=== PATIENT | male | born 2000 | race Caucasian/White ===

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

== ENCOUNTER 2018-10-23 13:52 | Emergency (ER) | payer BC ==
[2018-10-23] MEDS ORDERED: Diphtheria,Pertussis(Acell),Tetanus Vaccine 0.5 ML SDV IM ONE (14:21)
--- NOTE | 2018-10-23 15:27 | EDM.PDOC ---
ED HPI GENERAL MEDICAL PROBLEM - General Chief Complaint: Laceration Stated Complaint: RIGHT FOOT INJURY Time Seen by Provider: 10/23/18 14:10 Source of Information: Reports: Patient History Limitations: Reports: No Limitations - History of Present Illness INITIAL COMMENTS - FREE TEXT/NARRATIVE: 18-year-old male presents to the emergency room with a injury puncture wound to his right foot. Patient was using a yard drag when it got clogged up with hay and straw. 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 He attempted to unclogged the drag when it slipped out of his hand dropping directly onto his right foot. The spike went through his muddy rubber boots directly into his forefoot. He pulled the drag out of his foot and presented to the emergency room. He is otherwise healthy. He denies any other complaints. His pain is well controlled. - Related Data Allergies Allergy/AdvReac Type Severity Reaction Status Date / Time No Known Drug Allergies Allergy none Verified 10/23/18 14:56 Home Meds: Home Meds . [No Known Home Meds] 10/23/18 [History] Past Medical History - Past Health History Medical/Surgical History: Denies Medical/Surgical History HEENT History: Reports: Other (See Below) Other HEENT History: recent cold Respiratory History: Reports: Other (See Below) Other Respiratory History: current bronchitis - Past Surgical History Respiratory Surgical History: Reports: None Social & Family History - Tobacco Use Smoking Status *Q: Current Every Day Smoker Tobacco Use Within Last Twelve Months: Cigarettes Years of Tobacco use: 3 Packs/Tins Daily: 0.5 - Caffeine Use Caffeine Use: Reports: None - Living Situation & Occupation Living situation: Reports: with Family Occupation: Student Review of Systems - Review of Systems Review Of Systems: ROS reveals no pertinent complaints other than HPI. ED EXAM, GENERAL - Physical Exam Exam: See Below Exam Limited By: No Limitations General Appearance: Alert, WD/WN, No Apparent Distress Nose: Normal Inspection Throat/Mouth: Normal Inspection, Normal Lips, Normal Teeth, Normal Voice, No Airway Compromise Head: Atraumatic Neck: Normal Inspection, Supple Respiratory/Chest: Lungs Clear, Normal Breath Sounds Cardiovascular: Regular Rate, Rhythm, No Murmur GI/Abdominal: Soft Back Exam: Normal Inspection Extremities: Normal Inspection, Other (There is a puncture wound over the dorsal aspect of the right foot between the first and second web space. The puncture wound appears to come close to exiting through the plantar aspect of the foot. 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 and the boots are heavily covered with the manure and dirt) Neurological: Alert, Oriented Psychiatric: Normal Affect, Normal Mood Skin Exam: Warm, Dry, Intact, Normal Color, No Rash Course - Orders/Labs/Meds Orders: Active Orders 24 hr Category Date Time Status Vaccines to be Administered [RC] PER UNIT ROUTINE Care 10/23/18 14:22 Active Foot Comp Min 3V Rt [CR] Stat Exams 10/23/18 14:19 Ordered Meds: Medications Discontinued Medications Generic Name Dose Route Start Last Admin Trade Name Freq PRN Reason Stop Dose Admin Diphtheria/Tetanus/Acell Pertussis 0.5 ml 10/23/18 14:21 10/23/18 14:57 Adacel IM 10/23/18 14:22 0.5 ml .ONCE ONE Administration - Radiology Interpretation Free Text/Narrative:: X-rays 3 views right foot Departure - Departure Time of Disposition: 15:35 Disposition: DC/Tfer to Other 70 Condition: Good Clinical Impression: Penetrating wound of right foot Qualifiers: Encounter type: initial encounter Qualified Code(s): S91.331A - Puncture wound without foreign body, right foot, initial encounter - Discharge Information Instructions: Hand or Foot Foreign Body, Adult Referrals: Oanh Caballero, [employer] [Primary Care Provider] - Forms: ED Department Discharge - My Orders Last 24 Hours: My Active Orders 10/23/18 14:19 Foot Comp Min 3V Rt [CR] Stat 10/23/18 14:22 Vaccines to be Administered [RC] PER UNIT ROUTINE - Assessment/Plan Last 24 Hours: My Active Orders 10/23/18 14:19 Foot Comp Min 3V Rt [CR] Stat 10/23/18 14:22 Vaccines to be Administered [RC] PER UNIT ROUTINE Assessment:: Penetrating right foot wound with contamination Plan: 1. Patient will be transferred to [facility] in [place] for formal I&D of his right foot. This will be performed by Dr. Martínez. 2. Patient will remain nothing by mouth. 3. Patient will go immediately from [facility] to [facility] in [place]
--- NOTE | 2018-10-23 15:56 | CR ---
[id number] RAD/RAD Foot Right 3V Min Exam: RAD Foot Right 3V Min Indication:PUNCTURE WOUND THROUGH RIGHT FOOT FROM HARROW DRAG AT Comparison: No prior imaging for comparison. Discussion: No significant osseous or soft tissue abnormality. Impression: Negative examination of the foot. Cong Boucher MD 10/23/18 [id number] Thank you for allowing us to participate in the care of your patient.
[2018-10-23 17:19] VITALS: BP 130/60
== END 2018-10-23 15:40 | disposition other institution (70) ==
LOC: KA.ED 13:52
DX: S91.331A Puncture wound without foreign body, right foot, initial encounter (principal); Z23 Encounter for immunization; F17.210 Nicotine dependence, cigarettes, uncomplicated; W22.8XXA Striking against or struck by other objects, initial encounter; Y99.0 Civilian activity done for income or pay; Y92.096 Garden or yard of other non-institutional residence as the place of occurrence of the external cause
CPT/HCPCS: 73630-RT; 90471; 90715; 99283-25